=== PATIENT | female | born 1975 | race African-American/Black ===

== ENCOUNTER 2016-10-04 05:59 | Day surgery (SDC) | payer BC ==
[~2016-10-04] VITALS: Ht 175.3 cm; Wt 126.1 kg
[~2016-10-04 05:59] MED LIST: BUSPAR5 MG PO; CELEXA40 MG PO; IRON325 M1 PO; LIPITOR10 MG PO; MULTIPLE VITAM1 EACH PO; OMEPRAZOLE40 M1 PO
[2016-10-04 06:42] LABS: EOSINOPHIL (%) 2.8 % (0-5); EOSINOPHIL COUNT 0.2 K/uL (0-0.3); HEMATOCRIT 38.5 % (36.0-46.0); IMMATURE GRANULOCYTE (%) 0.2 % (0.0-0.7); INSTRUMENT ABS NEUTROPHIL CT 3.3 K/uL; LYMPHOCYTE COUNT 1.6 K/uL (1.0-2.8); MCH 28.9 PG (29.0-34.0); MCHC 31.4 G/DL (30.0-36.0); MCV 92.1 FL (83-99); MEAN PLAT.VOLUME 10.1 uM^3 (9.5-12.4); MONOCYTE (%) 5.8 % (3-12); MONOCYTE COUNT 0.3 K/uL (0-0.8); NEUTROPHIL (%) 61.3 % (45-76); NEUTROPHIL COUNT 3.3 K/uL (1.8-6.4); PLATELET COUNT 231 K/uL (156-360); RBC DIS.WIDTH-CV 13.6 % (11.8-14.6); RBC DIS.WIDTH-SD 46.3 % (39-53); RED BLOOD COUNT 4.18 M/uL (3.80-5.20); WHITE BLOOD COUNT 5.4 K/uL (4.1-10.2)
[2016-10-04 06:59] VITALS: BP 137/74
[2016-10-04] MEDS ORDERED: ENDOCET 5-3251 EACH PO (08:43)
[2016-10-04 10:03] VITALS: BP 143/67
[2016-10-04 10:47] VITALS: BP 128/81
== END 2016-10-04 10:56 | disposition home or self-care (01) ==
LOC: SDC 05:59
PROVIDERS: Obstetrics & Gynecology
DX: N92.0 Excessive and frequent menstruation with regular cycle (principal); D25.0 Submucous leiomyoma of uterus; Z30.432 Encounter for removal of intrauterine contraceptive device; D50.9 Iron deficiency anemia, unspecified; E78.5 Hyperlipidemia, unspecified; Z68.41 Body mass index [BMI] 40.0-44.9, adult; Z82.49 Family history of ischemic heart disease and other diseases of the circulatory system; Z83.3 Family history of diabetes mellitus; Z83.49 Family history of other endocrine, nutritional and metabolic diseases
CPT/HCPCS: 84702; 85025; J0690; J1100; J1885; J2250; J2405; J3010

== ENCOUNTER 2016-11-18 08:07 | Day surgery (SDC) | payer BC ==
[~2016-11-18] VITALS: Ht 175.3 cm; Wt 127.0 kg
[~2016-11-18 08:07] MED LIST changes: +BUSPAR10 MG PO; +ENDOCET 5-3251 EACH PO; +LIPITOR40 MG PO
[2016-11-18 08:42] VITALS: BP 134/71
[2016-11-18] MEDS ORDERED: PERCOCET 5/31 TABLET PO (10:57)
[2016-11-18 12:00] VITALS: BP 133/73
[2016-11-18 13:00] VITALS: BP 134/78
[2016-11-18 15:15] VITALS: BP 139/92
== END 2016-11-18 15:45 | disposition home or self-care (01) ==
LOC: SDC 08:07
DX: N92.0 Excessive and frequent menstruation with regular cycle (principal); R10.32 Left lower quadrant pain; D25.1 Intramural leiomyoma of uterus; N83.291 Other ovarian cyst, right side; N99.4 Postprocedural pelvic peritoneal adhesions; D50.9 Iron deficiency anemia, unspecified; E78.5 Hyperlipidemia, unspecified; Z82.49 Family history of ischemic heart disease and other diseases of the circulatory system; Z83.3 Family history of diabetes mellitus; Z83.49 Family history of other endocrine, nutritional and metabolic diseases
CPT/HCPCS: 88307; J0330; J0690; J1100; J1170; J1885; J2405; J2710; J3010